=== PATIENT | male | born 1950 | race Caucasian/White ===

== ENCOUNTER 2020-04-05 09:28 | Inpatient (IN) | payer MEDICARE, OTHER ==
[2020-04-05] VITALS (12 sets, daily range): BP systolic 117–148; BP diastolic 55–75
[~2020-04-05] VITALS: Ht 190.5 cm; Wt 124.4 kg
[2020-04-05] MEDS ORDERED: ASPIRIN 325 MG TABLET ONE (09:42)
[2020-04-05 09:45] LABS: BASOPHILS % (AUTO) 0.6 % (0.0-5.0); EOSINOPHILS % (AUTO) 1.5 % (0.0-8.0); HEMATOCRIT 39.3 % (42-54); LYMPHOCYTES % (AUTO) 32.9 % (21.0-51.0); MEAN CORPUSCULAR HEMOGLOBIN 31.2 pg (27.0-33.0); MEAN CORPUSCULAR HGB CONC 32.6 g/dL (32.0-36.0); MEAN CORPUSCULAR VOLUME 95.9 fL (79-99); MONOCYTES % (AUTO) 5.3 % (3.0-13.0); NEUTROPHILS % (AUTO) 59.4 % (40.0-77.0); PLATELET COUNT (AUTO) 158 K/uL (130-400); RED CELL DISTRIBUTION WIDTH 14.6 % (11.0-15.5); WHITE BLOOD COUNT (AUTO) 8.6 K/uL (4.8-10.8)
[2020-04-05 09:55] LABS: CREATININE 2.3 mg/dL (0.5-1.5); POTASSIUM 4.6 mmol/L (3.5-5.1)
[2020-04-05 09:56] LABS: INR 0.97 (0.85-1.15); PROTHROMBIN TIME 10.4 SEC (9.6-11.6)
[2020-04-05 09:57] LABS: PARTIAL THROMBOPLASTIN TIME 23.2 SEC (26.3-35.5)
[2020-04-05 10:00] LABS: ALBUMIN 3.8 g/dL (3.5-5.0); BILIRUBIN,TOTAL 0.3 mg/dL (0.2-1.0)
[2020-04-05] MEDS ORDERED: ONDANSETRON 4MG INJ ONE (10:53)
[2020-04-05] MEDS ORDERED: NITROGLYCERIN 1GM OINT 1 INCH/1GM TD ONE (10:53)
[2020-04-05] MEDS ORDERED: METOPROLOL TARTRATE 1 MG/ML 5ML VIAL IV ONE (10:54)
[2020-04-05] MEDS ORDERED: MORPHINE 4 MG SYG ONE (10:54)
[2020-04-05] MEDS ORDERED: HEPARIN 5,000 UNIT VIAL ONE (11:08)
[2020-04-05 11:39] LABS: ABG BASE EXCESS -1.3 mmol/L (-2.0-3.0); ABG HCO3 23.9 mmol/L (21.0-28.0); ABG OXYGEN SATURATION 96.9 % (95.0-99.0); ABG PCO2 42 mmHg (35-48)
[2020-04-05] MEDS ORDERED: 0.9%NACL 1000ML 1,000 ML IV ONE (12:06)
[2020-04-05] MEDS ORDERED: NICARDIPINE 25MG INJ IV ONE (12:13)
[2020-04-05] MEDS ORDERED: HEPARIN 10,000 UNIT/10ML (1,000 UNIT/ML) VIAL ONE (12:13)
[2020-04-05] MEDS ORDERED: NITROGLYCERIN 2 MG VIAL IV ONE (12:13)
[2020-04-05] MEDS ORDERED: IOHEXOL 350 MG/ML 100ML INFUS..BTL IV ONE (12:13)
[2020-04-05] MEDS ORDERED: IOHEXOL-350 75 ML VIAL IV ONE (12:13)
[2020-04-05] MEDS ORDERED: BIVALIRUDIN 250 MG/VIAL IV ONE ×2 (12:13→13:06)
[2020-04-05] MEDS ORDERED: FENTANYL CITRATE PF 50 MCG/1 ML 2ML VIAL ONE (12:14)
[2020-04-05] MEDS ORDERED: MIDAZOLAM HCL 1 MG/ML 2ML VIAL ONE (12:14)
[2020-04-05] MEDS ORDERED: SODIUM BICARB 50MEQ 50ML VIAL 50 ML ONE (12:14)
[2020-04-05] MEDS ORDERED: LIDOCAINE HCL 400MG/20ML VIAL ONE (12:14)
[2020-04-05] MEDS ORDERED: TICAGRELOR 90 MG TABLET ONE (13:12)
[2020-04-05] MEDS ORDERED: ONDANSETRON 4MG INJ IV PRN (13:15)
[2020-04-05] MEDS ORDERED: MORPHINE 2 MG SYG IV PRN (13:15)
[2020-04-05] MEDS ORDERED: ACETAMINOPHEN 325 MG TAB PO PRN ×2 (13:15)
[2020-04-05] MEDS ORDERED: NITROGLYCERIN 0.4 MG SL TAB SL PRN (13:30)
[2020-04-05 13:39] LABS: CHOLESTEROL 250 mg/dL (<200); HDL CHOLESTEROL 43 mg/dL (29-71); LDL DIRECT 182 mg/dL (0-99); TRIGLYCERIDES 89 mg/dL (30-200)
[2020-04-05 13:41] LABS: HEMOGLOBIN A1C 6.3 % (4.0-6.0)
[2020-04-05] MEDS ORDERED: 0.9%NACL 1000ML 1,000 ML IV SCH (14:00)
[2020-04-05] MEDS ORDERED: MORPHINE 4 MG SYG IV PRN (14:15)
[2020-04-05] MEDS: FAMOTIDINE 20MG VIAL IV SCH (16:00)
[2020-04-05] MEDS ORDERED: AEC81 PO (17:43)
[2020-04-05] MEDS ORDERED: CHLO4TAB32 PO (17:43)
[2020-04-05] MEDS ORDERED: ZOLP12.555 PO (17:43)
[2020-04-05] MEDS ORDERED: FURO20TA4 PO (17:43)
[2020-04-05] MEDS ORDERED: METO50TA18 PO (17:43)
[2020-04-05] MEDS ORDERED: FAMO40TA7 PO (17:43)
[2020-04-05] MEDS ORDERED: AMLO-257 PO (17:43)
[2020-04-05] MEDS ORDERED: ACAR25TA2 PO (17:43)
[2020-04-05] MEDS ORDERED: MULT-1192 PO (17:43)
[2020-04-05] MEDS ORDERED: TAMS-1 PO (17:43)
[2020-04-05] MEDS ORDERED: LEVO75TA4 PO (17:45)
[2020-04-05] MEDS ORDERED: CHOL100046 PO (17:45)
[2020-04-05] MEDS: CARVEDILOL 6.25 MG TABLET PO SCH (19:52)
[2020-04-05] MEDS: TICAGRELOR 90 MG TABLET PO SCH (19:58)
[2020-04-05] MEDS ORDERED: ATORVASTATIN 20 MG TABLET PO SCH ×2 (21:00)
[2020-04-06 03:39] LABS: BASOPHILS % (AUTO) 0.3 % (0.0-5.0); EOSINOPHILS % (AUTO) 1.5 % (0.0-8.0); HEMATOCRIT 36.6 % (42-54); LYMPHOCYTES % (AUTO) 22.7 % (21.0-51.0); MEAN CORPUSCULAR HEMOGLOBIN 31.1 pg (27.0-33.0); MEAN CORPUSCULAR HGB CONC 32.2 g/dL (32.0-36.0); MEAN CORPUSCULAR VOLUME 96.3 fL (79-99); MONOCYTES % (AUTO) 5.1 % (3.0-13.0); NEUTROPHILS % (AUTO) 70.1 % (40.0-77.0); PLATELET COUNT (AUTO) 159 K/uL (130-400); RED CELL DISTRIBUTION WIDTH 14.6 % (11.0-15.5); WHITE BLOOD COUNT (AUTO) 10.8 K/uL (4.8-10.8)
[2020-04-06 04:06] VITALS: BP 143/79
[2020-04-06 04:13] LABS: ALBUMIN 3.3 g/dL (3.5-5.0); BILIRUBIN,TOTAL 0.5 mg/dL (0.2-1.0); CREATININE 2.5 mg/dL (0.5-1.5); POTASSIUM 4.3 mmol/L (3.5-5.1); TOTAL PROTEIN, SERUM 6.7 g/dL (6.0-8.3)
[2020-04-06 04:16] LABS: TROPONIN I 2.92 ng/mL (0.00-0.06)
[2020-04-06 07:27] VITALS: BP 150/73
[2020-04-06] MEDS: FAMOTIDINE 20MG VIAL IV SCH (08:43)
[2020-04-06] MEDS: TICAGRELOR 90 MG TABLET PO SCH (08:44)
[2020-04-06] MEDS: CARVEDILOL 6.25 MG TABLET PO SCH (08:45)
[2020-04-06] MEDS ORDERED: ASPIRIN 81MG CHEW TAB PO SCH (09:00)
[2020-04-06 11:51] VITALS: BP 133/77
[2020-04-06] MEDS ORDERED: TICA90TA PO (14:05)
[2020-04-06] MEDS ORDERED: CARV6.2579 PO (14:09)
[2020-04-06] MEDS ORDERED: ATOR40TA71 PO (14:11)
== END 2020-04-06 15:00 | disposition home or self-care (01) | DRG 246 ==
LOC: EDH 09:28 → EDHIP 13:08 → 4DH 18:20
PROVIDERS: ADMIT Internal Medicine; ATTEND Internal Medicine
PROC: 027034Z Dilation of Coronary Artery, One Artery with Drug-eluting Intraluminal Device, Percutaneous Approach (ICD-10-PCS; principal; 2020-04-05)
PROC: 4A023N7 Measurement of Cardiac Sampling and Pressure, Left Heart, Percutaneous Approach (ICD-10-PCS; 2020-04-05)
PROC: B2111ZZ Fluoroscopy of Multiple Coronary Arteries using Low Osmolar Contrast (ICD-10-PCS; 2020-04-05)
DX: I21.4 Non-ST elevation (NSTEMI) myocardial infarction (principal); I50.23 Acute on chronic systolic (congestive) heart failure; N17.9 Acute kidney failure, unspecified; N18.4 Chronic kidney disease, stage 4 (severe); I13.0 Hypertensive heart and chronic kidney disease with heart failure and stage 1 through stage 4 chronic kidney disease, or unspecified chronic kidney disease; E11.22 Type 2 diabetes mellitus with diabetic chronic kidney disease; E78.5 Hyperlipidemia, unspecified; I25.10 Atherosclerotic heart disease of native coronary artery without angina pectoris; Z96.659 Presence of unspecified artificial knee joint; Z96.611 Presence of right artificial shoulder joint; Z95.5 Presence of coronary angioplasty implant and graft
CPT/HCPCS: 36415; 36600; 71045; 80053; 80061; 82550; 82803; 82948; 83036; 83874; 84484; 85025; 85610; 85730; 93005; 93306; 93356; 93458; 99156; 99157; A4606; C1760; C1769; C1887; C1894; C9600; G0378; J0583; J1644; J2250; J2270; J2405; J3010; J3490; J7030; Q9967

== ENCOUNTER 2021-01-18 08:24 | Emergency (ER) | payer MEDICARE, OTHER ==
[~2021-01-18] VITALS: Ht 190.5 cm; Wt 124.7 kg
[~2021-01-18 08:24] MED LIST: ACAR25TA2 PO; AEC81 PO; ATOR40TA71 PO; CARV6.2579 PO; CHLO4TAB32 PO; CHOL100046 PO; FAMO40TA7 PO; FURO20TA4 PO; LEVO75TA4 PO; MULT-1192 PO; TAMS-1 PO; TICA90TA PO; ZOLP12.555 PO
[2021-01-18] MEDS ORDERED: ACETAMINOPHEN 500 MG TABLET PO SCH (09:00)
[2021-01-18 09:20] LABS: BASOPHILS % (AUTO) 0.8 % (0.0-5.0); EOSINOPHILS % (AUTO) 2.9 % (0.0-8.0); HEMATOCRIT 34.7 % (42-54); LYMPHOCYTES % (AUTO) 32.4 % (21.0-51.0); MEAN CORPUSCULAR HEMOGLOBIN 30.1 pg (27.0-33.0); NEUTROPHILS % (AUTO) 55.5 % (40.0-77.0); PLATELET COUNT (AUTO) 159 K/uL (130-400); RED BLOOD CELL COUNT(AUTO) 3.69 MIL/uL (4.50-6.20); RED CELL DISTRIBUTION WIDTH 14.7 % (11.0-15.5); WHITE BLOOD COUNT (AUTO) 9.2 K/uL (4.8-10.8)
[2021-01-18 09:27] LABS: CREATININE 3.1 mg/dL (0.5-1.5); POTASSIUM 4.4 mmol/L (3.5-5.1)
[2021-01-18] MEDS ORDERED: CYCL10TA16 PO (09:56)
[2021-01-18] MEDS ORDERED: METH4TAB PO (09:56)
[2021-01-18] MEDS ORDERED: IBUP-2070 PO (09:56)
[2021-01-18 10:05] VITALS: BP 139/74
== END 2021-01-18 10:20 | disposition home or self-care (01) ==
LOC: EDH 08:24
DX: M79.604 Pain in right leg (principal); I25.10 Atherosclerotic heart disease of native coronary artery without angina pectoris; E11.9 Type 2 diabetes mellitus without complications; I11.9 Hypertensive heart disease without heart failure; E78.00 Pure hypercholesterolemia, unspecified; Z88.5 Allergy status to narcotic agent; Z79.899 Other long term (current) drug therapy; Z79.52 Long term (current) use of systemic steroids; Z79.1 Long term (current) use of non-steroidal anti-inflammatories (NSAID); Z79.82 Long term (current) use of aspirin; Z95.5 Presence of coronary angioplasty implant and graft
CPT/HCPCS: 36415; 80048; 85025; 93926; 93971